=== PATIENT | female | born 1945 | race Two or more races ===

== ENCOUNTER 2021-09-24 11:31 | Outpatient (CLI) | payer OTHER ==
[~2021-09-24 11:31] MED LIST: CIPRO500 MG PO; COZAAR25 MG; GLIPIZIDE ER2.5 MG; LASIX20 MG; METOPROLOL ER-1 EAC1
== END 2021-09-24 11:32 | disposition home or self-care (01) ==
LOC: LAB 11:31
PROVIDERS: ATTEND Urology
DX: N30.00 Acute cystitis without hematuria (principal)

== ENCOUNTER 2022-03-19 13:23 | Outpatient (CLI) | payer OTHER | END 2022-03-19 13:34 | disposition home or self-care (01) | LOC: TOM 13:23 | PROVIDERS: ATTEND Urology | DX: N28.1 Cyst of kidney, acquired (principal); N20.0 Calculus of kidney ==

== ENCOUNTER 2022-05-07 11:10 | Inpatient (IN) | payer OTHER ==
[~2022-05-07 11:10] MED LIST changes: +AMBIEN10 MG PO; +COZAAR100 MG PO; +GLUMETZA1000 MG PO; +LASIX20 MG PO; +LYRICA PO; +NORVASC5 MG PO; +NOVOLOG100 UNIT/1; +PROTONIX40 M1 PO
== END 2022-05-09 19:50 | disposition home or self-care (01) | DRG 660 ==
LOC: CIR.AMB 11:10 → SURH 14:17 → O/R 14:17 → SURH 18:37
PROVIDERS: ADMIT Urology; ATTEND Urology
PROC: BT1DZZZ Fluoroscopy of Right Kidney, Ureter and Bladder (ICD-10-PCS; 2022-05-07)
PROC: 0TC08ZZ Extirpation of Matter from Right Kidney, Via Natural or Artificial Opening Endoscopic (ICD-10-PCS; 2022-05-07)
PROC: 0T778DZ Dilation of Left Ureter with Intraluminal Device, Via Natural or Artificial Opening Endoscopic (ICD-10-PCS; principal; 2022-05-07 09:00)
DX: N20.0 Calculus of kidney (principal); N39.0 Urinary tract infection, site not specified; N28.1 Cyst of kidney, acquired; E11.8 Type 2 diabetes mellitus with unspecified complications; I10 Essential (primary) hypertension; B95.2 Enterococcus as the cause of diseases classified elsewhere; D50.0 Iron deficiency anemia secondary to blood loss (chronic); Z79.84 Long term (current) use of oral hypoglycemic drugs